=== PATIENT | female | born 1960 | race Caucasian/White ===

== ENCOUNTER 2019-03-14 08:29 | Day surgery (SDC) | payer MEDICARE ==
[~2019-03-14] VITALS: Ht 162.6 cm; Wt 67.1 kg
[~2019-03-14 08:29] MED LIST: ALBUTEROL SULF8.5 GM INH; AMBIEN5 MG PO; BAYER CHEWABLE81 MG PO; COREG25 MG PO; CYCLOBENZAPRINE10 MG PO; DIOVAN160 MG PO; FUROSEMIDE40 MG PO; KENALOG 0.1 % O15 GM TOPICAL; LIPITOR40 MG PO; NAPROSYN500 MG PO; NEURONTIN600 MG PO; OMEPRAZOLE40 MG PO; POTASSIUM CHLOR8 ME1 PO; ZOFRAN8 MG PO
[2019-03-14 08:55] LABS: HEMATOCRIT 40.6 % (36.0-48.0); HEMOGLOBIN 13.6 g/dL (12-16); MCH 28.6 pg (26.0-34.0); MCHC 33.5 g/dL (31.0-37.0); MCV 85.5 fL (80.0-100.0); MEAN PLATELET VOLUME 9.3 fL (7.4-10.4); RBC 4.75 10x6/uL (4.00-5.40); RDW 13.9 % (11.5-14.5); WBC 6.9 10x3/uL (4.8-10.8)
[2019-03-14 09:04] LABS: ANION GAP 11.5 mmol/L (8-16); CALCIUM 9.3 mg/dL (8.5-10.1); CARBON DIOXIDE 31.9 mmol/L (21.0-32.0); POTASSIUM - SERUM 3.4 mmol/L (3.5-5.1)
[2019-03-14] MEDS ORDERED: ASCORBIC ACID500 MG PO (09:55)
[2019-03-14] MEDS ORDERED: CALCIUM 250+D T1 TAB PO (09:55)
[2019-03-14 10:09] VITALS: BP 160/92; Ht 162.6 cm; Wt 67.1 kg
--- NOTE | 2019-03-19 10:43 | OP ---
PATIENT NAME: SHASTA VALENTE MEDICAL RECORD: [id number] :58 LOCATION:D[facility]OPS ADMISSION DATE: SURGEON: CARLOTA CHUNG MD DATE OF OPERATION: 03/14/2019 PREOPERATIVE DIAGNOSIS: Hip pain of the right hip with vjtq-kv-hsysddyn osteoarthritis. POSTOPERATIVE DIAGNOSIS: Hip pain of the right hip with [id number]-jc-hbceaofd osteoarthritis. PROCEDURE: Right hip injection under fluoroscopy. SURGEON: Carlota Chung MD ANESTHESIA: General. INTRAOPERATIVE COMPLICATIONS: None. SUMMARY OF PATHOLOGIC FINDINGS: Essentially, the patient has a relatively benign appearing x-ray; however, she did have symptoms that may be consistent with the labral tear. This injection as I have discussed with the patient is as much diagnostic as it is therapeutic. OPERATIVE SUMMARY IN DETAIL: After obtaining the appropriate preoperative orthopedic surgery consent as well as anesthetic consultation, evaluation and clearance, the patient was brought to the operating room and placed on the operating table in supine position. After general TIVA anesthesia was administered, the right hip was prepped and draped in a routine sterile fashion. An 18-gauge needle was then placed into the hip capsule and a small amount of Isovue was utilized to be sure that the needle tip was in the appropriate position as seen on fluoroscopy. At this point, 80 mg of Depo-Medrol and 8 cc of 0.25% Marcaine with epinephrine were placed into the hip capsule again under direct arthroscopic visualization. Having completed this, the needle was withdrawn. Needle tip was complete without deficit. Bandage was applied. The patient was awakened and taken back to the outpatient in stable condition. TRANSINT:[id number] Voice Confirmation ID: [id number] DOCUMENT ID: [id number] CARLOTA CHUNG MD at 1043 CC: [id number] DICTATION DATE: 03/14/19 1053 FOOD CONSULTANT: 03/14/19 1349 DEP SDC 03/14/[address] [id number]
== END 2019-03-14 12:10 | disposition home or self-care (01) ==
LOC: D.OPS 08:29 → D.PAN 10:45 → D.OPS 12:10 → D.PAN 13:15 → D.OPS 13:15 → D.PAN 13:45 → D.OPS 13:45
PROVIDERS: Anesthesiology; ATTEND Orthopaedic Surgery
DX: M16.11 Unilateral primary osteoarthritis, right hip (principal)